=== PATIENT | male | born 1995 | race Caucasian/White ===

== ENCOUNTER 2019-07-09 09:55 | Emergency (ER) | payer OTHER ==
[~2019-07-09] VITALS: Ht 188 cm; Wt 77.1 kg
[2019-07-09 10:03] VITALS: BP 127/76
[2019-07-09] MEDS ORDERED: ONDA4TAB12 PO (10:15)
[2019-07-09] MEDS ORDERED: ONDANSETRON ODT 4 MG TAB.RAPDIS PO ONE (10:45)
--- NOTE | 2019-07-09 10:47 | PHYS DOC ---
Past History Past Medical History: No Pertinent History Past Surgical History: No Surgical History Additional Smoking Information: 2 PPD Alcohol Use: Occasionally Drug Use: None Adult General Chief Complaint Chief Complaint: NAUSEA/VOMITING/DIARRHEA HPI HPI Patient is a 23-year-old female with nausea vomiting diarrhea 2-3 episodes of each nonbloody no fever does have some abdominal cramping prior to episodes of vomiting had exact same symptoms earlier this week basically came here from work because they said he needed a work note Review of Systems Review of Systems Constitutional: Denies fever or chills [] Eyes: Denies change in visual acuity, redness, or eye pain [] HENT: Denies nasal congestion or sore throat [] R Integument: Denies rash or skin lesions [] Neurologic: Denies headache, focal weakness or sensory changes [] Endocrine: Denies polyuria or polydipsia [] All other systems were reviewed and found to be within normal limits, except as documented in this note. Current Medications Current Medications Current Medications Medications (Trade) Dose Ordered Sig/Fadi Start Time Stop Time Status Last Admin Dose Admin Ondansetron HCl (Zofran Odt) 4 mg 1X ONCE 07/09/19 10:45 07/09/19 10:40 DC 07/09/19 10:35 4 MG Allergies Allergies Allergies Coded Allergies Type Severity Reaction Last Updated Verified No Known Drug Allergies 07/09/19 No Physical Exam Physical Exam Constitutional: Well developed, well nourished, no acute distress, non-toxic appearance. [] HENT: Normocephalic, atraumatic, bilateral external ears normal, oropharynx moist, no oral exudates, nose normal. [] Eyes: PERRLA, EOMI, conjunctiva normal, no discharge. [] Neck: Normal range of motion, no tenderness, supple, no stridor. [] Abdomen: Bowel sounds normal, soft, no tenderness, no masses, no pulsatile masses. [] Skin: Warm, dry, no erythema, no rash. [] Back: No tenderness, no CVA tenderness. [] Extremities: No tenderness, no cyanosis, no clubbing, ROM intact, no edema. [] Neurologic: Alert and oriented X 3, normal motor function, normal sensory function, no focal deficits noted. [] Psychologic: Affect normal, judgement normal, mood normal. [] Current Patient Data Vital Signs Vital Signs Date Time Temp Pulse Resp B/P (MAP) Pulse Ox O2 Delivery O2 Flow Rate FiO2 07/09/19 10:03 97.7 88 16 99 EKG EKG [] Radiology/Procedures Radiology/Procedures [] Course & Med Decision Making Course & Med Decision Making Pertinent Labs and Imaging studies reviewed. (See chart for details) []Benign abdomen well-appearing gentleman vomiting and diarrhea and I close sick contact had same symptoms reassurance Zofran work instructions provided return precautions discussed Hortencia Disclaimer Dragaug[employer] Disclaimer This electronic medical record was generated, in whole or in part, using a voice recognition dictation system. Departure Departure: Impression: Primary Impression: Nausea vomiting and diarrhea Disposition: HOME, SELF-CARE Condition: STABLE Patient Instructions: Nausea and Vomiting, [id number] Scripts Ondansetron (ONDANSETRON ODT) 4 Mg Tab.rapdis 1 TAB PO PRN Q6-8HRS PRN for NAUSEA/VOMITING, #16 TAB Prov: EAMON WATERS MD 07/09/19 EAMON WATERS MD Jul 09, 2019 10:47
== END 2019-07-09 10:40 | disposition home or self-care (01) ==
LOC: ER 09:55
DX: R11.2 Nausea with vomiting, unspecified (principal); R19.7 Diarrhea, unspecified; R50.9 Fever, unspecified; R10.9 Unspecified abdominal pain; F17.200 Nicotine dependence, unspecified, uncomplicated
CPT/HCPCS: 99283; Q0162

== ENCOUNTER 2020-03-15 10:05 | Emergency (ER) | payer OTHER ==
[~2020-03-15] VITALS: Ht 188 cm; Wt 87.0 kg
[~2020-03-15 10:05] MED LIST: ONDA4TAB12 PO
[2020-03-15 10:26] VITALS: BP 139/83
[2020-03-15] MEDS ORDERED: HYDR-3165 PO (10:29)
--- NOTE | 2020-03-15 10:29 | PHYS DOC ---
Past History Past Medical History: No Pertinent History Past Surgical History: No Surgical History Smoking: Cigarettes Alcohol Use: Occasionally Drug Use: None General Adult EDM: Chief Complaint: LOWEREXTREMITY INJURY HPI: HPI: 24-year-old male presents with 4-month history of right hip pain. Patient has been seen and followed up at [facility]. Patient reports they had treated him previously with physical therapy which did not improve symptoms. Patient therefore obtained MRI recently with report of "labrum tear ". Patient is to follow-up with Ortho but is awaiting referral. Patient reports pain not well controlled. Reports they have started him on gabapentin recently. Patient also has prescriptions for Flexeril, NSAID, and Tylenol. Report [facility] protocol does not allow them to prescribe stronger pain medication. Denies recent injury. Reports pain is similar but now he is unable to sleep. Review of Systems: Review of Systems: Constitutional: Denies fever or chills Eyes: Denies redness or eye pain HENT: Denies nasal congestion or sore throat Respiratory: Denies cough or shortness of breath Cardiovascular: Denies chest pain or palpitations GI: Denies abdominal pain, nausea, or vomiting : Denies dysuria or hematuria Musculoskeletal: Denies back pain; reports right hip pain Integument: Denies rash or skin lesions Neurologic: Denies headache, focal weakness or sensory changes Complete systems were reviewed and found to be within normal limits, except as documented in this note. Allergies: Allergies: Allergies Coded Allergies Type Severity Reaction Last Updated Verified No Known Drug Allergies 07/09/19 No Physical Exam: PE: Constitutional: Well developed, well nourished, no acute distress, non-toxic appearance HENT: Normocephalic, atraumatic Eyes: Conjunctiva normal, no discharge Neck: Normal range of motion, no tenderness, supple Cardiovascular: Right PT +2 Lungs & Thorax: No respiratory distress, equal chest rise and fall Skin: Warm, dry, no erythema, no rash Extremities: No calf tenderness, no edema Neurologic: Alert and oriented X 3, no focal deficits noted Psychologic: Affect normal, judgment normal EKG: EKG: [] Radiology/Procedures: Radiology/Procedures: [] Course & Med Decision Making: Course & Med Decision Making Patient presents with HPI and physical exam consistent for chronic pain. Patient requesting stronger pain medication than Tylenol. Patient awaiting orthopedic referral. [facility] report obtained. Patient hasn't received controlled pain medication since 2018. [place] provided. Rx for limited supply provided. Patient stable for discharge with outpatient follow-up with PCP/orthopedics. Discussed findings and plan with patient, who acknowledges understanding and agreement. Hortencia Disclaimer: Hortencia Disclaimer: This electronic medical record was generated, in whole or in part, using a voice recognition dictation system. Departure Departure: Impression: Primary Impression: Chronic right hip pain Disposition: HOME/RESIDENCE PRIOR TO ADM Condition: STABLE Referrals: [facility] APRN (PCP) Patient Instructions: Chronic Pain, Chronic Pain Management Additional Instructions: Please follow with your orthopedic surgeon and/or primary care provider for further pain management. Scripts Hydrocodone Bit/Acetaminophen (NORCO 5-325 TABLET) 1 Each Tablet 0.5-1 TAB PO Q6HRS PRN for PAIN, #10 TAB Prov: VIRIDIANA SALAS DO 03/15/20 Justification of Admission: Justification of Admission: Justification of Admission Dx: N/A VIRIDIANA SALAS DO Mar 15, 2020 10:29
[2020-03-15] MEDS ORDERED: HYDROcodone/APAP 5/325MG 1 TAB TABLET PO ONE (10:30)
== END 2020-03-15 10:35 | disposition home or self-care (01) ==
LOC: ER 10:05
DX: M25.551 Pain in right hip (principal); G89.29 Other chronic pain; F17.210 Nicotine dependence, cigarettes, uncomplicated
CPT/HCPCS: 99284